=== PATIENT | female | born 1975 | race Caucasian/White ===

== ENCOUNTER 2024-07-06 01:40 | Day surgery (SDC) | payer OTHER, SELFPAY ==
[2024-06-23 14:04] VITALS: BMI 40.3
[2024-07-06 09:46] VITALS: BP 139/99; PULSE 99; RESP 18; TEMP 36.3; O2SAT 98
--- NOTE | 2024-07-06 09:48 | PM.HPGS ---
History of Present Illness History of Present Illness Consent: Risks, benefits, and alternatives have been discussed and questions answered. Patient agrees to proceed with procedure. Chief complaint: screening colon Narrative: Gabriela Gordon is a 49 year old female here for first screening colonoscopy Review of Systems Review of Systems: All systems reviewed & are unremarkable except as noted in HPI and below PMFSH Past Medical History Medical History (Updated 07/06/24 @ 09:49 by Rock Ott MD) Colon cancer screening Social History Social History Smoking status: Never smoker Substance use type: does not use Living arrangements: with family Additional living arrangements comments: with sp Meds Home Medications and Allergies Home Medications ?Medication ?Instructions ?Recorded ?Confirmed ?Type levocetirizine 5 mg tablet (24HR 5 mg PO DAILY 06/23/24 07/06/24 History Allergy Relief) montelukast 10 mg tablet 10 mg PO DAILY 06/23/24 07/06/24 History norethindrone 1 mg-ethinyl 1 tablet PO DAILY 06/23/24 07/06/24 History estradiol 20 mcg (21)-iron 75 mg (7) tablet ([place] [facility] 06/26 (28)) Allergies Allergy/AdvReac Type Severity Reaction Status Date / Time CATS Allergy Mild ITCHING,WHE Uncoded 07/06/24 09:44 EZING DOGS Allergy Mild ITCHING,SNE Uncoded 07/06/24 09:44 EZING Grass Allergy Mild ITCHING,SNE Uncoded 07/06/24 09:44 EZING Molds and Smuts Allergy Mild ITCHING,SNE Uncoded 07/06/24 09:44 EZING TREES Allergy Mild ITCHING Uncoded 07/06/24 09:44 Vital Signs Vital Signs - 24 hr 07/06/24 09:46 Temperature 97.4 F L Pulse Rate 99 Respiratory Rate 18 Blood Pressure 139/99 H Pulse Oximetry 98 Oxygen Delivery Room Air Exam Const: General: comfortable and no acute distress HENMT: Face/Nose/Sinus: Normal nares present Eyes: General: appearance normal, both eyes and all related structures Neck: Neck: no JVD Resp: Auscultation: clear to auscultation bilaterally Cardio: Rate: regular rate Rhythm: regular rhythm GI: Inspection: non-distended GI Palp: Yes Soft to palpation Skin: General skin exam: normal color Neuro: General: gait normal Speech: normal speech Extrem: General: normal to inspection Psych: Mental Status: mental status grossly normal Assessment and Plan Assessment and plan (1) Colon cancer screening: Code(s): Z12.11 - Encounter for screening for malignant neoplasm of colon Status: Acute Assessment and Plan: colonoscopy
[2024-07-06 09:51] LABS: BEDSIDEPREGUCG Negative (Negative)
[2024-07-06] MEDS: LACTATED RINGERS 1,000 ML 150 ML IV CONT (09:54)
--- NOTE | 2024-07-06 10:07 | P.PNAN_ITS ---
Anes - Initial Pre Proc Eval Procedure: Operation Date: 07/06/24 11:00 Proposed Procedures p Screening Colonoscopy - Rock Ott MD Date/Time: 07/06/24 10:07 Surgeon: Rock Ott MD Pre Op Diagnosis: screening colon Patient Data Age: 49 Gender: F Height: 1.73 m Weight: 119.8 kg Last Vital Signs Temp 36.3 C L 07/06/24 09:46 Pulse 99 07/06/24 09:46 Resp 18 07/06/24 09:46 BP 139/99 H 07/06/24 09:46 Pulse Ox 98 07/06/24 09:46 O2 Del Method Room Air 07/06/24 09:46 Allergies Allergy/AdvReac Type Severity Reaction Status Date / Time CATS Allergy Mild ITCHING,WHE Uncoded 07/06/24 09:44 EZING DOGS Allergy Mild ITCHING,SNE Uncoded 07/06/24 09:44 EZING Grass Allergy Mild ITCHING,SNE Uncoded 07/06/24 09:44 EZING Molds and Smuts Allergy Mild ITCHING,SNE Uncoded 07/06/24 09:44 EZING TREES Allergy Mild ITCHING Uncoded 07/06/24 09:44 Home Medications ?Medication ?Instructions ?Recorded ?Confirmed ?Type levocetirizine 5 mg tablet (24HR 5 mg PO DAILY 06/23/24 07/06/24 History Allergy Relief) montelukast 10 mg tablet 10 mg PO DAILY 06/23/24 07/06/24 History norethindrone 1 mg-ethinyl 1 tablet PO DAILY 06/23/24 07/06/24 History estradiol 20 mcg (21)-iron 75 mg (7) tablet ([place] Fe 06/26 (28)) Laboratory Tests 07/06/24 09:48 POC Urine HCG, Qual Negative (Negative) Patient hx anesthesia problems: none Family hx anesthesia problems: none Results Review: All pre-operative results and documents have been reviewed as part of the pre- operative evaluation. [facility] Past Medical History Medical History (Updated 07/06/24 @ 10:10 by Clovis Castillo DO) Asthma Colon cancer screening Social History Social History Smoking status: Never smoker Substance use type: does not use Living arrangements: with family Additional living arrangements comments: with sp Anes - Eval Final PreProcedure Day of Procedure 07/06/24 10:07 Patient weight: morbidly obese Heart: regular rate and rhythm Lungs: clear to auscultation Airway: Mallampati scale class II Neurological: alert and oriented Last oral intake: >/= 8 hours ASA classification: III Emergent: no Anesthetic plan: proceed Anesthesia type and monitoring: general GIVS and standard monitoring Results Review: All pre-operative results and documents have been reviewed as part of the pre- operative evaluation. Informed Consent: The patient's anesthetic plan and its attendant risks and benefits were discussed with the patient/family/POA. Questions were solicited and answers provided to the satisfaction of the patient/family/POA.
[2024-07-06 10:27] VITALS: BP 134/67; PULSE 80; RESP 22; O2SAT 99
[2024-07-06 10:37] VITALS: BP 129/91; PULSE 78; RESP 21; O2SAT 100
[2024-07-06 10:47] VITALS: BP 136/86; PULSE 75; RESP 19; O2SAT 100
== END 2024-07-06 10:52 | disposition home or self-care (01) ==
PROVIDERS: Anesthesiology; Referring Provider Obstetrics & Gynecology Gynecology; Visit Provider Internal Medicine Gastroenterology
PROC: 0DJD8ZZ Inspection of Lower Intestinal Tract, Via Natural or Artificial Opening Endoscopic (ICD-10-PCS; CPT 45378; principal; 2024-07-06 11:00)
DX: Z12.11 Encounter for screening for malignant neoplasm of colon (principal); K64.8 Other hemorrhoids; E66.01 Morbid (severe) obesity due to excess calories; Z68.41 Body mass index [BMI] 40.0-44.9, adult
CPT/HCPCS: 45378; J2704; J7120